=== PATIENT | female | born 1995 | race African-American/Black ===

== ENCOUNTER 2019-03-17 16:24 | Emergency (ER) | payer BC, OTHER ==
[~2019-03-17] VITALS: Ht 157.5 cm; Wt 47.6 kg
[~2019-03-17 16:24] MED LIST: CYCLOBENZAPRINE10 MG ORAL; IBUPROFEN600 MG ORAL; NORCO 5-325 TA1 EACH ORAL
[2019-03-17] MEDS ORDERED: NKM (16:41)
--- NOTE | 2019-03-17 16:45 | NUR ---
ED Nurse Note: PT FROM HOME CAME IN DUE TO LOWER ABD PAIN WITH NAUSEA AND VOMITING STARTED 5 HOURS AGO. PT ALSO C/O DIARRHEA SINCE THIS MORNING. DENIES BLOOD IN HER STOOL. AAO X4, AMBULATORY WITH NON LABORED BREATHING.
[2019-03-17 16:50] VITALS: BP 108/67
[2019-03-17] MEDS ORDERED: D5NS 1,000 ML IV ONE (17:00)
--- NOTE | 2019-03-17 17:00 | Emergency Room Report ---
History of Present Illness General Chief Complaint: Nausea, Vomiting, and Diarrhea Source: Patient Present Illness HPI Disclaimer: Please note that this report is being documented using DRAGON technology. This can lead to erroneous entry secondary to incorrect interpretation by the dictating instrument. HPI: This is a 24-year-old female presented for evaluation of abdominal pain vomiting and diarrhea beginning this morning. Reports some mild and diffuse abdominal cramping but more persistent vomiting now to the point where she is dry heaving as she has nothing left in her stomach. Unable to hold down solids or liquids. Voluminous diarrhea that is nonbloody and denies melena. Denies cough or chest pain. Denies fever or chills. Reports significant weakness and fatigue. No known sick contacts. No new restaurants, cooking styles, recent travel or known sick contacts. She had an ectopic one year ago treated surgically. LMP was 3 weeks ago. Denies vaginal discharge, vaginal bleeding, flank pain, dysuria, hematuria, urinary frequency or urgency. Denies drug or alcohol abuse. Occasional marijuana use but none recently. PMH: Ectopic PSH: Laparoscopy Allergies: Denies Social Hx: Occasional marijuana use, none recently Allergies: Coded Allergies: No Known Allergies (Unverified , 09/25/13) Patient History Last Menstrual Period: 02/24/19 Nursing Documentation-PMH Past Medical History: No Stated History Review of Systems All Other Systems: negative except mentioned in HPI Physical Exam Vital Signs Date Time Temp Pulse Resp B/P (MAP) Pulse Ox O2 Delivery O2 Flow Rate FiO2 03/17/19 16:35 97.9 129 18 100/59 (73) 95 Room Air General: Awake and alert, appears very uncomfortable, actively vomiting on my arrival in the room HEENT: NC/AT. EOMI. anicteric sclera. Dry mucous membranes. Cardiovascular: Tachycardic. S1 and S2 normal. No murmur appreciated Resp: Normal work of breathing. No cough, wheezing or crackles appreciated Abdomen: Abdomen is soft, nondistended. Mild diffuse tenderness more centralized in the epigastrium and suprapubic regions. No mass. No rebound. Negative Morleand's. No CVA tenderness Skin: Intact. No abrasions, laceration or rash over the exposed skin MSK: Normal tone and bulk. Moving all extremities. No obvious deformity. Neuro: Awake and alert. Mentating appropriately. Procedures Ultrasound Ultrasound : Consent: Emergent Ultrasound: normal Patient Tolerated: Well Complications: None Progress Bedside limited ultrasound of the kidneys. No free fluid appreciated in Morison 's pouch or the splenorenal recess. No evidence of hydronephrosis on either side. No cyst appreciated. Patient tolerated the procedure well. Performed at bedside by me, Dr. Beto Dick Medical Decision Making Diagnostic Impression: Primary Impression: Nausea and vomiting Additional Impressions: UTI (urinary tract infection) Intractable vomiting ER Course This a 24-year-old female presenting with 1 day of vomiting and diarrhea. Differential includes was not limited to gastroenteritis, hepatitis, pancreatitis, cholecystitis, urinary tract infection, pyelonephritis, ectopic , sexual transmitted infection, PID, nephrolithiasis of these, viral gastroenteritis appears to be the most plausible given the onset of symptoms and the patient's generalized appearance. We will start broad metabolic and infectious work-up, provide IV fluids, antiemetics and pain medication. Laboratory Tests Test 03/17/19 17:00 White Blood Count 31.8 K/UL (4.8-10.8) *H Red Blood Count 5.13 M/UL (4.20-5.40) Hemoglobin 15.7 G/DL (12.0-16.0) Hematocrit 45.3 % (37.0-47.0) Mean Corpuscular Volume 88 FL (80-99) Mean Corpuscular Hemoglobin 30.7 PG (27.0-31.0) Mean Corpuscular Hemoglobin Concent 34.7 G/DL (32.0-36.0) Red Cell Distribution Width 10.6 % (11.6-14.8) L Platelet Count 297 K/UL (150-450) Mean Platelet Volume 6.9 FL (6.5-10.1) Neutrophils (%) (Auto) % (45.0-75.0) Lymphocytes (%) (Auto) % (20.0-45.0) Monocytes (%) (Auto) % (1.0-10.0) Eosinophils (%) (Auto) % (0.0-3.0) Basophils (%) (Auto) % (0.0-2.0) Differential Total Cells Counted 100 Neutrophils % (Manual) 86 % (45-75) H Lymphocytes % (Manual) 6 % (20-45) L Monocytes % (Manual) 5 % (1-10) Eosinophils % (Manual) 0 % (0-3) Basophils % (Manual) 0 % (0-2) Band Neutrophils 3 % (0-8) Platelet Estimate Adequate Platelet Morphology Normal Red Blood Cell Morphology Normal Urine Color [place] Urine Appearance Cloudy Urine pH 6 (4.5-8.0) Urine Specific [place] 1.020 (1.005-1.035) Urine Protein 2+ (NEGATIVE) H Urine Glucose (UA) Negative (NEGATIVE) Urine Ketones 4+ (NEGATIVE) H Urine Blood 4+ (NEGATIVE) H Urine Nitrite Negative (NEGATIVE) Urine Bilirubin Negative (NEGATIVE) Urine Ictotest Negative (NEGATIVE) Urine Urobilinogen 1 MG/DL (0.0-1.0) H Urine Leukocyte Esterase 3+ (NEGATIVE) H Urine RBC 10-15 /HPF (0 - 2) H Urine WBC 30-40 /HPF (0 - 2) H Urine Squamous Epithelial Cells Many /LPF (NONE/OCC) H Urine Bacteria Many /HPF (NONE) H Urine HCG, Qualitative Negative (NEGATIVE) Sodium Level 139 MMOL/L (136-145) Potassium Level 3.6 MMOL/L (3.5-5.1) Chloride Level 100 MMOL/L (98-107) Carbon Dioxide Level 22 MMOL/L (21-32) Anion Gap 17 mmol/L (5-15) H Blood Urea Nitrogen 16 mg/dL (7-18) Creatinine 0.8 MG/DL (0.55-1.30) Estimate Glomerular Filtration Rate > 60 mL/min (>60) Glucose Level 126 MG/DL (74-106) H Calcium Level 10.9 MG/DL (8.5-10.1) H Total Bilirubin 0.9 MG/DL (0.2-1.0) Aspartate Amino Transferase (AST) 14 U/L (15-37) L Alanine Aminotransferase (ALT) 14 U/L (12-78) Alkaline Phosphatase 63 U/L (46-116) Total Protein 9.3 G/DL (6.4-8.2) H Albumin 5.1 G/DL (3.4-5.0) H Globulin 4.2 g/dL Albumin/Globulin Ratio 1.2 (1.0-2.7) Lipase 87 U/L (73-393) Reevaluation Time: 18:55 Last Vital Signs Date Time Temp Pulse Resp B/P (MAP) Pulse Ox O2 Delivery O2 Flow Rate FiO2 03/17/19 16:35 97.9 129 18 100/59 (73) 95 Room Air Reevaluation Impression Labs are consistent with an acute urinary tract infection showing significant blood, ketones, leukocyte esterase, bacteria and white cells. Significant white count at 31.8 with a left shift. Blood cultures ordered. The patient required additional dose of antiemetics and continued IV fluids. Bedside ultrasound was performed by az showing no evidence of hydronephrosis. Little concern for kidney stone at this time. Her renal function is normal. Patient will require admission for monitoring overnight and further management of her vomiting symptoms. She will receive a dose of ceftriaxone in the emergency department. Will arrange transfer to short-term hospital according to her insurance plan. She is stable and appropriate for transfer. [facility] Condition: Stable Beto Dick MD Mar 17, 2019 17:00
[2019-03-17] MEDS ORDERED: Metoclopramide 10mg/2ml Inj IVP ONE ×2 (17:15→20:30)
[2019-03-17] MEDS ORDERED: DiphenhydrAMINE 50mg/ml Inj IVP ONE (17:15)
[2019-03-17 17:17] LABS: APPEARANCE,URINE CLOUDY; BILIRUBIN, URINE NEGATIVE (NEGATIVE); COLOR,URINE AMBER; GLUCOSE, URINE (UA) NEGATIVE (NEGATIVE); KETONES,URINE 4+ (NEGATIVE); LEUKOCYTE ESTERASE ,URINE 3+ (NEGATIVE); NITRITE,URINE NEGATIVE (NEGATIVE); PH,URINE 6 (4.5-8.0); PROTEIN,URINE 2+ (NEGATIVE); UROBILINOGEN,URINE 1 MG/DL (0.0-1.0)
--- NOTE | 2019-03-17 17:18 | NUR ---
ED Nurse Note: COLLECTED BLOOD/URINE THEN SENT.
[2019-03-17] MEDS ORDERED: IBUPROFEN600 MG ORAL ×2 (17:23)
[2019-03-17] MEDS ORDERED: ONDANSETRON ODT4 MG BC ×2 (17:23)
[2019-03-17 17:25] LABS: HEMATOCRIT 45.3 % (37.0-47.0); HEMOGLOBIN 15.7 G/DL (12.0-16.0); MEAN CORPUSCULAR VOLUME 88 FL (80-99); PLATELET COUNT 297 K/UL (150-450); RED BLOOD COUNT 5.13 M/UL (4.20-5.40); RED CELL DISTRIBUTION WIDTH 10.6 % (11.6-14.8)
[2019-03-17 17:30] LABS: ANION GAP 17 mmol/L (5-15); BLOOD UREA NITROGEN 16 mg/dL (7-18); CALCIUM 10.9 MG/DL (8.5-10.1); CARBON DIOXIDE 22 MMOL/L (21-32); CHLORIDE 100 MMOL/L (98-107); CREATININE 0.8 MG/DL (0.55-1.30); POTASSIUM 3.6 MMOL/L (3.5-5.1); SODIUM 139 MMOL/L (136-145)
[2019-03-17 17:34] LABS: ALANINE AMINOTRANSFERASE 14 U/L (12-78); ALBUMIN 5.1 G/DL (3.4-5.0); ALBUMIN/GLOBULIN RATIO 1.2 (1.0-2.7); ALKALINE PHOSPHATASE 63 U/L (46-116); ASPARTATE AMINO TRANSFERASE 14 U/L (15-37); BILIRUBIN,TOTAL 0.9 MG/DL (0.2-1.0)
[2019-03-17 17:36] LABS: WHITE BLOOD COUNT 31.8 K/UL (4.8-10.8)
[2019-03-17] MEDS ORDERED: cefTRIAXone 1 GM in NS 55 ML IVPB ONE (17:45)
[2019-03-17 19:00] VITALS: BP 107/59
--- NOTE | 2019-03-17 19:10 | NUR ---
ED Nurse Note: DR NEAL CHOUDHURYAY FOR PT TO HAVE ORAL INTAKE AT THIS TIME. PROVIDED PT WITH WATER.
--- NOTE | 2019-03-17 19:37 | NUR ---
ED Nurse Note: REPORT GIVEN TO MARJORIE CROOKS OF [facility].
--- NOTE | 2019-03-17 19:38 | NUR ---
HAND-OFF: Report given to AL CROOKS.
[2019-03-17 20:47] VITALS: BP 107/62
--- NOTE | 2019-03-17 21:00 | NUR ---
ED Nurse Note: Pt reports feeling chills and nausea, ERMD notified, awaiting order.
[2019-03-17] MEDS ORDERED: D5 1/2NS 1,000 ML IV SCH (21:26)
[2019-03-17] MEDS ORDERED: Miralax 17gm pkt ORAL PRN (21:30)
[2019-03-17] MEDS ORDERED: Metoclopramide 10mg/2ml Inj IVP PRN (21:30)
[2019-03-17] MEDS ORDERED: LORazepam Inj 2mg/ml 1ml IV PRN (21:30)
[2019-03-17] MEDS ORDERED: Nitroglycerin Subl 0.4mg tab SL PRN (21:30)
[2019-03-17] MEDS ORDERED: Morphine Sulfate 2mg/ml Inj(IV/IM USE ONLY) IVP PRN (21:30)
[2019-03-17] MEDS ORDERED: Acetaminophen 500mg (ES) tab ORAL ONE (21:45)
[2019-03-17 22:00] VITALS: BP 107/62
--- NOTE | 2019-03-17 22:00 | NUR ---
ER DISCHARGE NOTE: Patient is cleared to be discharged per ERMD, pt is aox4, on room air, with stable vital signs. pt was given dc and prescription instructions, pt was able to verbalize understanding, pt id band removed. pt took all belongings. Pt transported to [facility] via [facility]. VSS
[2019-03-18] MEDS ORDERED: Heparin 5000 units/ml inj SUBQ SCH (09:00)
[2019-03-18] MEDS ORDERED: Pantoprazole Inj IV SCH (09:00)
== END 2019-03-17 22:00 | disposition short-term general hospital (02) ==
LOC: EMR 17:21
DX: N39.0 Urinary tract infection, site not specified (principal); R11.2 Nausea with vomiting, unspecified
CPT/HCPCS: 36415; 80053; 81003; 81025; 83690; 85007; 85025; 87040; 87086; 96361; 96365; 96375; 96376; J0696; J1200; J2405; J2765; Z7502; 99285; J7030

== ENCOUNTER 2020-02-13 07:30 | Emergency (ER) | payer OTHER ==
[~2020-02-13] VITALS: Ht 157.5 cm; Wt 49.9 kg
[~2020-02-13 07:30] MED LIST changes: +NKM; +ONDANSETRON ODT4 MG BC
--- NOTE | 2020-02-13 07:59 | Emergency Room Report ---
History of Present Illness General Chief Complaint: Generalized Weakness Source: Patient Present Illness HPI Patient is a 25-year-old female presents after increased lower abdominal discomfort and cramping. To have reports of increased diarrheal stools. States this feels similar to prior episode of C. difficile colitis. Patient had reportedly been taking course of oral vancomycin. She denies any fever. She reports having some night sweats. Denies any prior history of diabetes or immune compromise. Had previous ER visit at this facility. States she feels like she may have another yeast infection. Denies any bloody stools. Allergies: Coded Allergies: No Known Allergies (Unverified , 09/25/13) COVID-19 Screening Contact w/high risk pt: No Experienced COVID-19 symptoms?: Yes COVID-19 Testing performed API DEVELOPER: Yes COVID-19 Screening: Negative COVID-19 COVID-19 Testing Source: LAST MONTH Patient History Past Medical History: see triage record Last Menstrual Period: 02/05/20 Reviewed Nursing Documentation: PMH: Agreed; PSxH: Agreed Review of Systems All Other Systems: negative except mentioned in HPI Physical Exam Vital Signs Date Time Temp Pulse Resp B/P (MAP) Pulse Ox O2 Delivery O2 Flow Rate FiO2 02/13/20 07:40 97.7 92 18 118/76 (90) 96 Room Air Sp02 EP Interpretation: reviewed, normal General Appearance: normal inspection, well appearing, no apparent distress, alert, GCS 15, non-toxic Head: atraumatic ENT: normal ENT inspection, hearing grossly normal, normal voice Neck: normal inspection, full range of motion, supple, no bony tend Respiratory: normal inspection, lungs clear, normal breath sounds, no respiratory distress, no retraction, no wheezing Cardiovascular #1: regular rate, rhythm, no edema Gastrointestinal: normal inspection, normal bowel sounds, non tender, soft, no guarding, no hernia Genitourinary: no CVA tenderness Musculoskeletal: normal inspection, back normal, normal range of motion Neurologic: alert, responsive, speech normal, normal inspection Psychiatric: normal inspection, judgement/insight normal, mood/affect normal Medical Decision Making Diagnostic Impression: Primary Impression: Abdominal pain ER Course Patient presents for abdominal pain.Differential diagnosis include was not limited to C. difficile colitis, gastroenteritis, urinary tract infection, irritable bowel disease among others. Because of complexity of patient's case laboratory tests and imaging studies were ordered. Abdominal ultrasound showed no evidence of acute gallstones or any definite kidney abnormalities. Patient's abdominal discomfort appears to be related to increased bloating from diarrhea. Patient was advised discontinue dairy products. She was given prescription for Flagyl however was advised to hold off on taking this until C. difficile toxin assay results were obtained. Patient was advised to follow-up with her primary care physician for recheck. She is to return if worse. Patient is advised to return if any worsening condition or if any changes in status that are concerning. This report is dictated with [email or web address] electronic calibration technician software which may occasionally lead to discrepancies related to use of this software. Labs Test 02/13/20 08:00 White Blood Count 9.0 K/UL (4.8-10.8) Red Blood Count 4.53 M/UL (4.20-5.40) Hemoglobin 13.6 G/DL (12.0-16.0) Hematocrit 39.6 % (37.0-47.0) Mean Corpuscular Volume 87 FL (80-99) Mean Corpuscular Hemoglobin 30.0 PG (27.0-31.0) Mean Corpuscular Hemoglobin Concent 34.3 G/DL (32.0-36.0) Red Cell Distribution Width 12.6 % (11.6-14.8) Platelet Count 303 K/UL (150-450) Mean Platelet Volume 6.7 FL (6.5-10.1) Neutrophils (%) (Auto) 66.7 % (45.0-75.0) Lymphocytes (%) (Auto) 21.6 % (20.0-45.0) Monocytes (%) (Auto) 8.4 % (1.0-10.0) Eosinophils (%) (Auto) 1.3 % (0.0-3.0) Basophils (%) (Auto) 2.0 % (0.0-2.0) Last Vital Signs Date Time Temp Pulse Resp B/P (MAP) Pulse Ox O2 Delivery O2 Flow Rate FiO2 02/13/20 07:40 97.7 92 18 118/76 (90) 96 Room Air Status: improved Disposition: HOME, SELF-CARE Condition: Stable Scripts Dicyclomine Hcl* (DICYCLOMINE HCL*) 10 Mg Capsule 10 MG ORAL QID, #20 CAP Prov: Carlitos Lanza MD 02/13/20 Metronidazole* (FLAGYL*) 500 Mg Tablet 500 MG ORAL BID for 7 Days, #14 TAB Prov: Carlitos Lanza MD 02/13/20 Referrals: [facility],REFERRING (PCP) Carlitos Lanza MD Feb 13, 2020 07:59
[2020-02-13 08:00] VITALS: BP 120/75
[2020-02-13] MEDS ORDERED: Dicyclomine HCl 10mg/5ml oral soln ORAL ONE (08:00)
[2020-02-13 08:15] LABS: EOSINOPHILS % (AUTO) 1.3 % (0.0-3.0); HEMATOCRIT 39.6 % (37.0-47.0); HEMOGLOBIN 13.6 G/DL (12.0-16.0); LYMPHOCYTES % (AUTO) 21.6 % (20.0-45.0); MEAN CORPUSCULAR VOLUME 87 FL (80-99); MONOCYTES % (AUTO) 8.4 % (1.0-10.0); NEUTROPHILS % (AUTO) 66.7 % (45.0-75.0); PLATELET COUNT 303 K/UL (150-450); RED BLOOD COUNT 4.53 M/UL (4.20-5.40); RED CELL DISTRIBUTION WIDTH 12.6 % (11.6-14.8)
[2020-02-13] MEDS ORDERED: DICYCLOMINE HCL10 MG ORAL (09:04)
[2020-02-13] MEDS ORDERED: METRONIDAZOLE500 MG ORAL (09:04)
[2020-02-13 09:18] LABS: ANION GAP 16 mmol/L (5-15); BLOOD UREA NITROGEN 11 mg/dL (7-18); CALCIUM 9.3 MG/DL (8.5-10.1); CARBON DIOXIDE 20 MMOL/L (21-32); CHLORIDE 104 MMOL/L (98-107); CREATININE 0.8 MG/DL (0.55-1.30); POTASSIUM 3.5 MMOL/L (3.5-5.1); SODIUM 140 MMOL/L (136-145)
[2020-02-13 09:19] VITALS: BP 119/76
[2020-02-13 09:24] LABS: ALANINE AMINOTRANSFERASE 12 U/L (12-78); ALBUMIN 4.5 G/DL (3.4-5.0); ALBUMIN/GLOBULIN RATIO 1.3 (1.0-2.7); ALKALINE PHOSPHATASE 50 U/L (46-116); ASPARTATE AMINO TRANSFERASE 13 U/L (15-37); BILIRUBIN,TOTAL 0.8 MG/DL (0.2-1.0)
[2020-02-13 09:41] LABS: APPEARANCE,URINE CLEAR; BILIRUBIN, URINE NEGATIVE (NEGATIVE); COLOR,URINE BROWN; GLUCOSE, URINE (UA) NEGATIVE (NEGATIVE); KETONES,URINE 4+ (NEGATIVE); LEUKOCYTE ESTERASE ,URINE 1+ (NEGATIVE); NITRITE,URINE NEGATIVE (NEGATIVE); PH,URINE 5 (4.5-8.0); PROTEIN,URINE 2+ (NEGATIVE); UROBILINOGEN,URINE 1 MG/DL (0.0-1.0)
--- NOTE | 2020-02-13 10:11 | Diagnostic Imaging Report ---
EXAM: ULTRASOUND US ABD Complete CLINICAL HISTORY: Reason For Exam: ABD PAIN. COMPARISON: None TECHNIQUE: Ultrasound examination of the abdomen includes grayscale images, and color and spectral doppler analysis. FINDINGS: The liver and spleen are homogeneous. The gallbladder is without sludge or stone. Common bile duct measures 2 mm. The pancreas is unremarkable to the extent visualized. There are small nonshadowing echogenic foci noted in both kidneys indeterminate for small stone versus perivascular fat. No hydronephrosis noted bilaterally. Aorta and cava are within normal limits. IMPRESSION: NO SIGN OF ACUTE DISEASE. NONSPECIFIC TINY ECHOGENIC FOCI WITHOUT SHADOWING NOTED IN BOTH KIDNEYS INDETERMINATE FOR SMALL STONES VERSUS PERIVASCULAR FAT. NO HYDRONEPHROSIS.
== END 2020-02-13 09:21 | disposition home or self-care (01) ==
LOC: EMR 07:54
DX: R10.30 Lower abdominal pain, unspecified (principal); R19.7 Diarrhea, unspecified
CPT/HCPCS: 36415; 76700; 80053; 81003; 81025; 83690; 85025; 87324; J7040; Z7502; 99284

== ENCOUNTER 2020-02-17 16:33 | Emergency (ER) | payer OTHER ==
[~2020-02-17] VITALS: Ht 157.5 cm; Wt 49.9 kg
[~2020-02-17 16:33] MED LIST changes: +DICYCLOMINE HCL10 MG ORAL; +METRONIDAZOLE500 MG ORAL
[2020-02-17 16:45] VITALS: BP 114/72
--- NOTE | 2020-02-17 16:45 | NUR ---
ED Nurse Note: pt. walked in to er from home. per pt. she woke up this morning with a severe sorethroat. denies cough. Pt is AOx4, calm and cooperative to care, VSS, on RA, afebrile on triage.
--- NOTE | 2020-02-17 16:54 | Emergency Room Report ---
History of Present Illness General Chief Complaint: Sore Throat Source: Patient Present Illness HPI 25-year-old female with no no significant past medical history here complaining of 1 day of 10 out of 10 sore throat and tonsillar swelling. Negative fever chills, cough or congestion, shortness of breath, abdominal pain, nausea vomiting diarrhea. Denies coming in contact with anybody who was positive for Covid. Has not taken medication for symptom relief. Denies . Denies tobacco smoke, marijuana use, no other drug use. Allergies: Coded Allergies: No Known Allergies (Unverified , 09/25/13) COVID-19 Screening Contact w/high risk pt: No Experienced COVID-19 symptoms?: Yes COVID-19 Testing performed SCHOOL OPERATIONS MANAGER: No Patient History Past Medical History: see triage record Past Surgical History: none Pertinent Family History: none Last Menstrual Period: 2 weeks ago Now: No Immunizations: UTD Reviewed Nursing Documentation: PMH: Agreed; PSxH: Agreed Nursing Documentation-PMH Past Medical History: No History, Except For Review of Systems All Other Systems: negative except mentioned in HPI Physical Exam Vital Signs Date Time Temp Pulse Resp B/P (MAP) Pulse Ox O2 Delivery O2 Flow Rate FiO2 02/17/20 16:38 99.0 100 19 114/72 (86) 95 Room Air Sp02 EP Interpretation: reviewed, normal General Appearance: alert, mild distress Head: normocephalic, atraumatic Eyes: bilateral eye normal inspection, bilateral eye PERRL ENT: tonsillar swelling, pharyngeal erythema, tonsillar exudate Neck: other - anterior cervical lymphadenapathy Respiratory: chest non-tender, lungs clear, normal breath sounds, no rhonchi, no respiratory distress, no retraction, no wheezing Cardiovascular #1: regular rate, rhythm, no edema Gastrointestinal: normal bowel sounds, non tender, soft, non-distended, no guarding, no rebound Rectal: deferred Genitourinary: no CVA tenderness Musculoskeletal: back normal, no calf tenderness Neurologic: alert, motor strength/tone normal, oriented x3, sensory intact, responsive, speech normal Psychiatric: judgement/insight normal, memory normal, mood/affect normal, no suicidal/homicidal ideation Skin: no rash Lymphatic: adenopathy - anterior cervical Medical Decision Making PA Attestation All diagnoses and treatment plans were reviewed and discussed with my supervising physician Dr. Dick Diagnostic Impression: Primary Impression: Tonsillitis with exudate ER Course 25-year-old female with no no significant past medical history here complaining of 1 day of 10 out of 10 sore throat and tonsillar swelling. Negative fever chills, cough or congestion, shortness of breath, abdominal pain, nausea vomiting diarrhea. Denies coming in contact with anybody who was positive for Covid. Has not taken medication for symptom relief. Denies . Denies tobacco smoke, marijuana use, no other drug use. Ddx considered but are not limited to: strep pharyngitis, URI, tonsillitis, peritonsillar abscess, influneza, coronavirus Vital signs: are WNL, pt. is afebrile H&PE are most consistent with: Tonsillitis with exudate ORDERS: Augmentin, prednisone, lidocaine viscous, Motrin ED INTERVENTIONS: None required at this time. DISCHARGE: At this time pt. is stable for d/c to home. Will provide printed patient care instructions, and any necessary prescriptions. Care plan and follow up instructions have been discussed with the patient prior to discharge. Take m edication as directed, increase oral hydration, follow-up primary care provider, get tested for Covid, percent symptoms return to the emergency room Last Vital Signs Date Time Temp Pulse Resp B/P (MAP) Pulse Ox O2 Delivery O2 Flow Rate FiO2 02/17/20 16:38 99.0 100 19 114/72 (86) 95 Room Air Disposition: HOME, SELF-CARE Condition: Stable Scripts Lidocaine HCl 2% Viscous (Lidocaine HCl 2% Viscous) 100 Ml Solution 15 ML ORAL QID, #100 ML Prov: Ca Olivier 02/17/20 Ibuprofen* (MOTRIN*) 600 Mg Tablet 600 MG ORAL Q6H PRN for For Pain, #30 TAB 0 Refills Prov: Ca Olivier 02/17/20 Prednisone* (PREDNISONE*) 20 Mg Tablet 40 MG ORAL DAILY for 5 Days, #10 TAB Prov: Ca Olivier 02/17/20 Amoxicillin/Potassium Clav 875-125* (AUGMENTIN 875-125 TABLET*) 1 Each Tablet 1 TAB ORAL TWICE A DAY for 7 Days, #14 TAB Prov: Ca Olivier 02/17/20 Patient Instructions: Tonsillitis Additional Instructions: Take medication as directed, follow-up with your primary care provider, worsening symptoms return to the emergency room Ca Olivier Feb 17, 2020 16:54
[2020-02-17] MEDS ORDERED: AUGMENTIN 875-1 EAC1 ORAL (16:55)
[2020-02-17] MEDS ORDERED: IBUPROFEN600 M1 ORAL (16:55)
[2020-02-17] MEDS ORDERED: PREDNISONE20 MG ORAL (16:55)
[2020-02-17] MEDS ORDERED: LIDOCAINE VISC100 ML ORAL (16:55)
[2020-02-17 17:02] VITALS: BP 116/71
--- NOTE | 2020-02-17 17:02 | NUR ---
ER DISCHARGE NOTE: Patient is cleared to be discharged per ERPA, pt is aox4, on room air, with stable vital signs. pt was given dc and prescription instructions, pt was able to verbalize understanding, pt id band removed. pt is able to ambulate with steady gait. pt took all belongings.
== END 2020-02-17 17:02 | disposition home or self-care (01) ==
LOC: EMR 16:55
DX: J03.91 Acute recurrent tonsillitis, unspecified (principal)
CPT/HCPCS: 99282